=== PATIENT | male | born 1950 | race Caucasian/White ===

== ENCOUNTER 2018-08-02 12:33 | Emergency (ER) | payer MEDICARE ==
[2018-08-02] MEDS ORDERED: Sodium Chloride 0.9% 10 ML Syringe FLUSH PRN (12:38)
[2018-08-02] MEDS: Sodium Chloride 0.9% 1,000 ML IV SCH (13:30)
[2018-08-02 13:32] LABS: ANION GAP 12.1 mmol/L (10-20); CHLORIDE,CL 101 mmol/L (98-107); SODIUM,NA 137 mmol/L (136-145)
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
[2018-08-02 15:10] VITALS: BP 115/63
== END 2018-08-02 16:52 | disposition home or self-care (01) ==
LOC: VM.ED 12:33
DX: F20.9 Schizophrenia, unspecified (principal); Z79.899 Other long term (current) drug therapy
CPT/HCPCS: 36415; 80053; 80178; 81001; 82550; 83735; 84484; 85025; 86140; 99283; 99285; J7030

== ENCOUNTER 2019-01-29 15:00 | Emergency (ER) | payer MEDICARE, BC ==
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
== END 2019-01-29 16:30 ==
LOC: VM.ED 15:00
DX: F20.9 Schizophrenia, unspecified (principal)
CPT/HCPCS: 99285

== ENCOUNTER 2019-05-30 21:37 | Emergency (ER) | payer MEDICARE, BC ==
[2019-05-30 21:47] VITALS: BP 142/77; PULSE 90
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
[2019-05-30 22:34] LABS: CHLORIDE,CL 104 mmol/L (98-107); SODIUM,NA 143 mmol/L (136-145)
[2019-05-30 23:00] LABS: BUPRENORPHINE,URINE NEGATIVE (NEGATIVE); MARIJUANA,URINE NEGATIVE (NEGATIVE); METHYLENEDIOXYMETHAMP,UR NEGATIVE (NEGATIVE); PHENCYCLIDINE,URINE NEGATIVE (NEGATIVE)
== END 2019-05-30 23:18 | disposition home or self-care (01) ==
LOC: VM.ED 21:37
DX: F32.9 Major depressive disorder, single episode, unspecified (principal); F20.9 Schizophrenia, unspecified; E78.00 Pure hypercholesterolemia, unspecified; Z79.82 Long term (current) use of aspirin; Z79.899 Other long term (current) drug therapy
CPT/HCPCS: 36415; 80053; 80305-QW; 81001; 83735; 84100; 84443; 85025; 85610; 86140; 99284; 99284-GF; G0480

== ENCOUNTER 2021-04-20 17:10 | Emergency (ER) | payer MEDICARE, BC ==
[2021-04-20 17:19] VITALS: BP 104/49; PULSE 77
[2021-04-20 17:56] LABS: CHLORIDE,CL 108 mmol/L (98-107); SODIUM,NA 143 mmol/L (136-145)
[2021-04-20 17:57] LABS: ANION GAP 19.4 mmol/L (5-15)
[2021-04-20] MEDS ORDERED: Haloperidol Lactate 5 MG/ML SDV IV ONE (18:29)
[2021-04-20] MEDS ORDERED: Sodium Chloride 0.9% 1,000 ML IV ONE ×2 (18:29→18:48)
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
[2021-04-20 22:00] LABS: CHLORIDE,CL 111 mmol/L (98-107); SODIUM,NA 142 mmol/L (136-145)
[2021-04-20 22:01] LABS: ANION GAP 20.9 mmol/L (5-15)
== END 2021-04-20 22:55 ==
LOC: VM.ED 17:10
DX: F20.9 Schizophrenia, unspecified (principal); E78.00 Pure hypercholesterolemia, unspecified; Z79.82 Long term (current) use of aspirin; Z79.899 Other long term (current) drug therapy
CPT/HCPCS: 36415; 80048; 85025; 96374; 99284; 99285-25; J1630; J7030

== ENCOUNTER 2021-07-27 17:23 | Emergency (ER) | payer MEDICARE, BC ==
[2021-07-27 20:07] VITALS: BP 123/71; PULSE 90
== END 2021-07-27 20:12 ==
LOC: VM.ED 17:23
DX: S02.2XXA Fracture of nasal bones, initial encounter for closed fracture (principal); E78.00 Pure hypercholesterolemia, unspecified; N40.0 Benign prostatic hyperplasia without lower urinary tract symptoms; Z79.82 Long term (current) use of aspirin; Z79.899 Other long term (current) drug therapy; W50.0XXA Accidental hit or strike by another person, initial encounter
CPT/HCPCS: 70450; 70486; 99284; 99285-25